=== PATIENT | female | born 1950 | race Hispanic/Latino ===

== ENCOUNTER 2017-01-16 08:25 | Emergency (ER) | payer MEDICARE, MEDICAID ==
[2017-01-16 08:31] VITALS: BP 167/85; PULSE 97; RESP 16; TEMP 98; O2SAT 97; BMI 28.3
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
== END 2017-01-16 09:42 | disposition home or self-care (01) ==
LOC: ED 08:25
DX: J02.9 Acute pharyngitis, unspecified (principal)
CPT/HCPCS: 87070; 87430; 96372; 99282; J1100

== ENCOUNTER 2017-01-30 20:20 | Emergency (ER) | payer MEDICARE, MEDICAID ==
[2017-01-30 20:20] VITALS: BMI 28.3
[2017-01-30] MEDS ORDERED: Morphine 2 mg/ml ISec IVP STA (20:59)
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
[2017-01-30 21:02] VITALS: TEMP 97.7
[2017-01-30 21:52] LABS: HEMATOCRIT 38.9 % (36.0-48.0); MEAN CELL VOLUME 82.9 fL (80.0-105.0); MEAN CORPUSCULAR HEMOGLOBIN 28.1 pg (25.0-35.0); MEAN CORPUSCULAR HGB CONC 33.9 g/dl (31.0-37.0); MEAN PLATELET VOLUME 11.4 fl (7.0-11.0); RED CELL DISTRIBUTION WIDTH 13.4 % (11.5-14.5)
[2017-01-30 21:55] LABS: ALB/GLOB RATIO 1.1 (1.1-1.8); ALKALINE PHOSPHATASE 84 U/L (38-133); ALT/SGPT 27 U/L (7-56); AST/SGOT 19 U/L (15-39); BILIRUBIN,TOTAL 0.6 mg/dL (0.2-1.3); BLOOD UREA NITROGEN 10 mg/dL (7-21); CALCIUM 10.1 mg/dL (8.4-10.5); CARBON DIOXIDE 26 mmol/L (21-33); CHLORIDE 104 mmol/L (98-107); GFR AFRICAN-AMERICAN > 60; GLUCOSE,RANDOM 135 mg/dL (70-110); POTASSIUM 3.3 mmol/L (3.6-5.0); SODIUM 142 mmol/L (132-148); TOTAL PROTEIN 8.6 g/dL (5.8-8.3)
[2017-01-30 21:58] LABS: INR 0.93 (0.93-1.08); PARTIAL THROMBOPLASTIN TIME 24.9 Seconds (23.7-30.8)
[2017-01-30 22:06] LABS: TROPONIN I < 0.01 ng/mL
[2017-01-30 23:42] VITALS: BP 147/80; PULSE 80; RESP 19; O2SAT 96
--- NOTE | 2017-01-31 07:20 | RAD ---
HISTORY: bilateral shoulder pain COMPARISON: Comparison is made to 06/25/2014 FINDINGS: LUNGS: No significant interval change in the lungs. PLEURA: No significant pleural effusion identified, no pneumothorax apparent. CARDIOVASCULAR: Normal. OSSEOUS STRUCTURES: No significant abnormalities. VISUALIZED UPPER ABDOMEN: Normal. OTHER FINDINGS: None. IMPRESSION: No active disease.
--- NOTE | 2017-01-31 10:23 | CARD ---
APPROVED REPORT EKG Measurement Heart [id number] <Conclusion> Normal sinus rhythm Possible Left atrial enlargement Borderline ECG
== END 2017-01-30 23:21 | disposition home or self-care (01) ==
LOC: ED 20:20
DX: M25.512 Pain in left shoulder (principal); M25.511 Pain in right shoulder; I10 Essential (primary) hypertension
CPT/HCPCS: 71010; 80053; 82550; 83615; 84484; 85027; 85610; 85730; 93005; 96374; 99283; J2270

== ENCOUNTER 2018-04-21 12:21 | Emergency (ER) | payer MEDICARE, MEDICAID ==
[2018-04-21 12:22] VITALS: BMI 28.3
[2018-04-21 12:48] VITALS: BP 122/74; PULSE 84; RESP 18; TEMP 99; O2SAT 97
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
== END 2018-04-21 15:51 | disposition left against medical advice (07) ==
LOC: ED 12:21
DX: S89.92XA Unspecified injury of left lower leg, initial encounter (principal); W01.0XXA Fall on same level from slipping, tripping and stumbling without subsequent striking against object, initial encounter; Y93.01 Activity, walking, marching and hiking; Y92.832 Beach as the place of occurrence of the external cause; Z91.19 Patient's noncompliance with other medical treatment and regimen

== ENCOUNTER 2018-10-26 09:03 | Outpatient (CLI) | payer MEDICARE, MEDICAID | END 2018-10-26 09:04 | disposition home or self-care (01) | LOC: RAD 09:03 | DX: Z85.3 Personal history of malignant neoplasm of breast (principal) ==

== ENCOUNTER 2019-01-23 06:54 | Emergency (ER) | payer MEDICARE, MEDICAID ==
[2019-01-23 06:55] VITALS: BMI 28.3
[2019-01-23 07:06] VITALS: RESP 18; TEMP 97.6
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
[2019-01-23 08:47] VITALS: BP 139/69; PULSE 68; O2SAT 97
--- NOTE | 2019-01-23 09:49 | RAD ---
Date of service: 01/23/2019 HISTORY: fall/chest pain COMPARISON: 01/30/2017 TECHNIQUE: Chest PA and lateral views FINDINGS: LUNGS: No active pulmonary disease. PLEURA: No significant pleural effusion identified. No pneumothorax apparent. CARDIOVASCULAR: Aortic calcification Normal cardiac size. No pulmonary vascular congestion. OSSEOUS STRUCTURES: No significant abnormalities. VISUALIZED UPPER ABDOMEN: Normal. OTHER FINDINGS: None. IMPRESSION: No active disease.
== END 2019-01-23 09:18 | disposition home or self-care (01) ==
LOC: ED 06:54
DX: S20.219A Contusion of unspecified front wall of thorax, initial encounter (principal); W19.XXXA Unspecified fall, initial encounter; Z85.3 Personal history of malignant neoplasm of breast; I10 Essential (primary) hypertension; H81.09 Meniere's disease, unspecified ear